=== PATIENT | male | born 1950 | race Caucasian/White ===

== ENCOUNTER → 2016-12-10 | Outpatient (CLI) | payer BC | LOC: RAD 10:05 | PROVIDERS: ATTEND Orthopaedic Surgery | DX: M25.522 Pain in left elbow (principal) | CPT/HCPCS: 73080 ==

== ENCOUNTER → 2017-03-08 | Outpatient (REF) | payer BC ==
[~2017-03-08] MED LIST: ASPI-586 PO; ATOR10TA PO; CLOP75TA3 PO; FLUO5DRO6 OP; HYDR-3881 PO; PRAM0.12 GT; TAMS0.4C2 PO
[2017-03-08 16:38] LABS: BASOPHILS % (AUTO) 0 % (0-2); EOSINOPHILS # (AUTO) 0.1 10^3uL; EOSINOPHILS % (AUTO) 1 % (0-4); LYMPHOCYTES # (AUTO) 2.3 X10^3; MEAN CORPUSCULAR HEMOGLOBIN 30.1 PG (26.0-34.0); MEAN CORPUSCULAR HGB CONC 33.6 g/dL (31.0-37.0); MEAN CORPUSCULAR VOLUME 90 FL (80-100); MEAN PLATELET VOLUME 10.9 FL (6.0-9.5); MONOCYTES # (AUTO) 0.8 X10^3; MONOCYTES % (AUTO) 11 % (3-11); NEUTROPHILS # (AUTO) 4.2 X10^3; NEUTROPHILS % (AUTO) 57 % (51-67); PLATELET COUNT 195 10^3uL (150-450)
[2017-03-09 00:07] LABS: IRON 73 ug/dL (65-175)
== END ==
LOC: LAB 15:57
PROVIDERS: ATTEND Family Medicine
DX: R53.83 Other fatigue (principal); E53.8 Deficiency of other specified B group vitamins; G47.33 Obstructive sleep apnea (adult) (pediatric); I21.4 Non-ST elevation (NSTEMI) myocardial infarction
CPT/HCPCS: 82728; 83540; 84443; 85025